=== PATIENT | female | born 1995 | race African-American/Black ===

== ENCOUNTER 2018-07-27 19:41 | Emergency (ER) | payer MEDICAID ==
[~2018-07-27] VITALS: Ht 165.1 cm; Wt 59.0 kg
[2018-07-27 19:55] VITALS: BP 116/82
[2018-07-27] MEDS ORDERED: NKM (19:57)
--- NOTE | 2018-07-27 20:01 | NUR ---
ED Nurse Note: pt walked in c/o flu like sx since yesterday, sorethroat, cough, and congestion but denies fever. Pt AA&ox4, gcs=15, skin warm and dry, resp even and unlabored, LS=clear, -n/v/d, ambulates w/ steady gait. will cont monitor.
[2018-07-27] MEDS ORDERED: SUDAFED PE PRE1 EACH PO (20:14)
[2018-07-27] MEDS ORDERED: TESSALON PERLE100 MG ORAL (20:14)
[2018-07-27] MEDS ORDERED: TAMIFLU75 MG ORAL (20:14)
--- NOTE | 2018-07-27 20:14 | Emergency Room Report ---
History of Present Illness General Chief Complaint: Flu Like Symptoms Source: Patient Present Illness HPI 23-year-old female patient presents the ER complaining cough and "flulike symptoms" times 1 day. Reports cough is dry. Denies hemoptysis. Denies cough sputum. Reports fever yesterday to 102 F, patient afebrile currently in the ER. Reports that she took NyQuil at home. Denies chest pain or shortness of breath. Denies history of OK or asthma. Denies abdominal pain. Denies recent travel. Denies history of recent immobilization. Denies calf pain. Reports generalized aches and pains. Reports did not receive flu vaccine this year. Denies smoking. Reports sore throat and earache during this time. Denies other aggravating or relieving factors. Allergies: Coded Allergies: MORPHINE (Verified Allergy, Unknown, 07/27/18) Uncoded Allergies: HONEYDEW (Allergy, Unknown, 07/27/18) Patient History Past Medical History: see triage record Last Menstrual Period: may 2019 Now: No Reviewed Nursing Documentation: PMH: Agreed; PSxH: Agreed Nursing Documentation-PMH Past Medical History: No Stated History Review of Systems All Other Systems: negative except mentioned in HPI Physical Exam Vital Signs Date Time Temp Pulse Resp B/P (MAP) Pulse Ox O2 Delivery O2 Flow Rate FiO2 07/27/18 19:52 98.8 110 16 117/77 95 Room Air Sp02 EP Interpretation: reviewed, normal General Appearance: well appearing, no apparent distress, alert, GCS 15, non- toxic Head: normocephalic, atraumatic Eyes: bilateral eye normal inspection, bilateral eye PERRL ENT: hearing grossly normal, normal pharynx, no angioedema, normal voice, TMs + canals normal, uvula midline, moist mucus membranes, pharyngeal erythema, other - uvula midline, no exudates Neck: full range of motion, no meningismus, no bony tend Respiratory: lungs clear, normal breath sounds, no rhonchi, no respiratory distress, no accessory muscle use, no wheezing, speaking full sentences Cardiovascular #1: regular rate, rhythm, no edema Gastrointestinal: non tender, soft, no mass, non-distended, no guarding, no rebound Genitourinary: no CVA tenderness Musculoskeletal: back normal, digits/nails normal, gait/station normal, normal range of motion, non-tender, no calf tenderness, Vivian's Sign negative Neurologic: alert, oriented x3, responsive, motor strength/tone normal, sensory intact, other - Negative Kernig, negative Brudzinski Psychiatric: mood/affect normal Skin: no rash Lymphatic: no adenopathy Medical Decision Making PA Attestation Dr. Solomon is my supervising Physician whom patient management has been discussed with. Diagnostic Impression: Primary Impression: Influenza-like symptoms ER Course Pt presents to ED c/o cough and "flulike symptoms". DDX considered but are not limited to influenza, viral URI, pneumonia, strep throat, rhinitis, sinusitis, otitis media, otitis externa. Negative Kernig, negative , patient afebrile, low suspicion for meningitis. VITAL SIGNS are WNL, patient is afebrile. ER COURSE: Lungs clear to auscultation, no wheezes, rhonci or rales. patient afebrile. Low suspicion for pneumonia, will not order CXR at this time. no tonsillar exudates, no pharyngeal erythema, history of cough, no fever, no stridor, uvula midline, low suspicion for peritonsillar abscess. Likely viral etiology of symptoms. Symptomatic treatment. drink plenty of fluids. Salt water gargles for sore throat. Followup with PCP for further treatment and/or referral as needed. ER precautions given. DISCHARGE: -Rx given for Sudafed -Rx given for Tessalon Perles for cough sx. -Rx given for Tamiflu for influenza. At this time pt is stable for d/c to home. Patient is resting comfortably, in no acute distress, nontoxic appearing. Patient to take medications as instructed Will provide with patient care instructions and any necessary prescriptions. Care plan and follow-up instructions provided. Patient instructed to follow-up with primary care provider in 3 - 5 days. Patient questions asked and answered. Patient reports understanding and agreement to treatment plan. ER precautions given. Patient instructed to return to ER immediately for any new or worsening of symptoms including but not limited to increasing SOB, persistent fever, intractable vomiting. - Please note that this Emergency Department Report was dictated using [employer] worker technology software, occasionally this can lead to erroneous entry secondary to interpretation by the dictation equipment. Last Vital Signs Date Time Temp Pulse Resp B/P (MAP) Pulse Ox O2 Delivery O2 Flow Rate FiO2 2/4/19 19:52 98.8 110 16 117/77 95 Room Air Disposition: HOME, SELF-CARE Condition: Stable Scripts Oseltamivir Phosphate (Tamiflu) 75 Mg Capsule 75 MG ORAL TWICE A DAY for 5 Days, #10 CAP Prov: Fidel Almaraz 07/27/18 Benzonatate* (TESSALON PERLE*) 100 Mg Capsule 100 MG ORAL THREE TIMES A DAY, #20 PERLE Prov: Fidel Almaraz 07/27/18 D-Methorphan/PE/Acetaminophen (Sudafed PE Pressure+Pain+Cough) 1 Each Tablet 1 EACH PO TID, #24 TAB Prov: Fidel Almaraz 07/27/18 Patient Instructions: Influenza, Adult, [id number], Upper Respiratory Infection, Adult, [id number] Additional Instructions: Followup with primary care provider in 3 -5 days. Take medications as directed. Patient questions asked and answered. ER precautions given, patient instructed to return to ER immediately for any new or worsening of symptoms. Fidel Almaraz Jul 27, 2018 20:14
--- NOTE | 2018-07-27 20:30 | NUR ---
ED Nurse Note: pt cleared to d/c per ERMD order, pt discharge instruction provided w/ prescription, pt advised to follow up with pcp or return to ed if s/s worsen or new s/s develop, pt education done via discussion and hand out, wristband removed, pt verbalized understanding and agrees with plan. pt vss, ambulatory w/ steady gait, resp even and unlabored, airway intact, all belongings left with pt.
[2018-07-27 20:34] VITALS: BP 116/80
== END 2018-07-27 20:34 | disposition home or self-care (01) ==
LOC: EMR 20:00
DX: J11.1 Influenza due to unidentified influenza virus with other respiratory manifestations (principal); Z88.5 Allergy status to narcotic agent
CPT/HCPCS: 99282